=== PATIENT | female | born 1960 | race Caucasian/White ===

== ENCOUNTER 2020-06-11 14:45 | Outpatient (CLI) | payer OTHER, SELFPAY ==
--- NOTE | ~2020-06-11 | CT_ITS ---
EXAMINATION: CT abdomen pelvis w con DATE: 06/11/2020 15:34 INDICATION: Swelling. Abdominal mass. Frequent urination. TECHNIQUE: Computed tomography (CT) of the abdomen and pelvis was performed with 100 mL Omnipaque-350 intravenous contrast. Automated exposure control and iterative reconstruction technique were employe d. The dose-length product was 1503.23 mGy-cm. COMPARISON: None FINDINGS: Small calcified nodule in the right middle lobe consistent with old granulomatous disease. Heart size is normal. No pericardial or pleural effusion. Liver, spleen, pancreas, bilateral adrenal glands and left kidney are normal. Indeterminate 6 mm intermediate attenuation right renal lesion which is too small to definitively characterize. Gallbladder is nondistended but with mild edematous wall thickeni ng versus small amount of pericholecystic fluid. No intra or extra hepatic biliary ductal dilation. T here is moderate colonic diverticulosis with a sigmoid predominance. There is no adjacent inflammator y change to suggest diverticulitis. Small bowel and appendix are normal. The uterus is not identifie d and has likely been surgically resected. There is mild diffuse bladder wall thickening which could be due to partially decompressed state or cystitis either acute or chronic. Small amount of likely ph ysiologic free fluid in the pelvis. No pathologically enlarged abdominal or pelvic lymphadenopathy. N o discrete masses identified. Severe lumbar and moderate to severe lower thoracic spondylosis. IMPRESSION: 1. Mild edematous gallbladder wall thickening versus small amount of pericholecystic fluid. Different ial would include acute cholecystitis in the appropriate clinical setting although more typically the gallbladder would be dilated. Differential would also include change of chronic cholecystitis or marah ma related to liver disease, heart disease or other generalized edema forming states. Correlate for M urphy sign and with clinical history. Could also consider gallbladder ultrasound to assess for cholel ithiasis. 2. Indeterminate intermediate attenuation 6 mm right renal cyst which is too small to definitively ch aracterize, statistically most likely to represent a proteinaceous/hemorrhagic cyst although solid ne oplasm cannot be excluded. Consider 6 month follow-up pre and postcontrast MRI or CT. 3. Mild diffuse bladder wall thickening which could be due to incomplete distention although differen tial would include cystitis either acute or chronic. Correlate with urinalysis. 4. Moderate diverticulosis. Reviewed, dictated and finalized at location A. ASSEMBLER IMPRESSION: 1. Mild edematous gallbladder wall thickening versus small amount of pericholec ystic fluid. Differential would include acute cholecystitis in the appropriate clinical setting although more typically the gallbladder would be dilated. Diff erential would also include change of chronic cholecystitis or edema related to liver disease, heart disease or other generalized edema forming states. Correl ate for Dockery sign and with clinical history. Could also consider gallbladder ultrasound to assess for cholelithiasis. 2. Indeterminate intermediate attenuation 6 mm right renal cyst which is too sm all to definitively characterize, statistically most likely to represent a prot einaceous/hemorrhagic cyst although solid neoplasm cannot be excluded. Consider 6 month follow-up pre and postcontrast MRI or CT. 3. Mild diffuse bladder wall thickening which could be due to incomplete disten tion although differential would include cystitis either acute or chronic. Ginger elate with urinalysis. 4. Moderate diverticulosis.
[2020-06-11 15:26] LABS: Estimated Glomerular Filt Rate > 60
== END 2020-06-11 14:46 | disposition home or self-care (01) ==
PROVIDERS: PCP Internal Medicine Infectious Disease; Visit Provider Obstetrics & Gynecology
DX: R19.00 Intra-abdominal and pelvic swelling, mass and lump, unspecified site (principal); K57.30 Diverticulosis of large intestine without perforation or abscess without bleeding; R93.89 Abnormal findings on diagnostic imaging of other specified body structures
CPT/HCPCS: 74177; Q9967

== ENCOUNTER 2020-07-04 11:40 | Outpatient (CLI) | payer OTHER, SELFPAY ==
--- NOTE | ~2020-07-04 | US_ITS ---
EXAMINATION: US right upper quadrant DATE: 07/04/2020 12:10 INDICATION: Gallbladder wall thickening. TECHNIQUE: Multiple grayscale and Doppler ultrasound images of the abdomen were obtained. COMPARISON: CT abdomen and pelvis 06/11/2020 FINDINGS: The visualized portions of the head and body of the pancreas are normal. The liver is ruby l without focal lesion. There is normal flow in main portal vein. There are gallstones in the gallbla dder, which is normal in size. Gallbladder wall thickening is noted. There was no sonographic Dockery sign. The common duct is normal and measures 6 mm. IMPRESSION: 1. Cholelithiasis and persistent gallbladder wall thickening, likely chronic cholecystitis. Reviewed, dictated and finalized at location A. N RESOURCES RECORDS CLERK IMPRESSION: 1. Cholelithiasis and persistent gallbladder wall thickening, likely chronic ch olecystitis.
[2020-07-04 12:47] LABS: Hematocrit 40.5 % (37.0-47.0); Hemoglobin 12.5 g/dL (12.0-15.0); Mean Corpuscular HGB Conc 30.9 g/dl (32-36); Mean Corpuscular Hemoglobin 26.8 pg (26-34); Mean Corpuscular Volume 86.7 fl (80-100); Mean Platelet Volume 10.1 fl (7.4-10.4); Platelet Count Result 225 k/mm3 (150-375); Red Blood Count 4.67 M/mm3 (4.2-5.4); Red Cell Distribution Width 14.4 % (11.5-14.5)
[2020-07-04 13:03] LABS: Alanine Aminotransferase 22 U/L (4-35); Alkaline Phosphatase 74 U/L (38-126); Anion Gap 5 mmol/L (8-16); Aspartate Amino Transferase 25 U/L (14-36); Bilirubin,Total 0.3 mg/dL (0.2-1.3); Blood Urea Nitrogen 14 mg/dL (7-17); Calcium 9.1 mg/dL (8.4-10.2); Carbon Dioxide 32 mmol/L (22-30); Chloride 105 mmol/L (98-107); Estimated Glomerular Filt Rate > 60; Glucose 106 mg/dL (65-105); Potassium 4.2 mmol/L (3.4-5.0); Sodium 142 mmol/L (137-145)
== END 2020-07-04 11:41 | disposition home or self-care (01) ==
PROVIDERS: PCP Internal Medicine Infectious Disease; Visit Provider Nurse Practitioner
DX: R93.3 Abnormal findings on diagnostic imaging of other parts of digestive tract (principal); K80.20 Calculus of gallbladder without cholecystitis without obstruction
CPT/HCPCS: 36415; 76705; 80048; 80076; 85027

== ENCOUNTER 2020-09-22 09:07 | Outpatient (CLI) | payer OTHER, SELFPAY ==
--- NOTE | ~2020-09-22 | US_ITS ---
EXAMINATION: US pelvic complete w TV DATE: 09/22/2020 10:05 INDICATION: Palpable midline pelvic mass. Previous hysterectomy. Comparison:No prior studies for comparison. TECHNIQUE: Multiple transabdominal and endovaginal sonographic images of the pelvis performed. FINDINGS: Uterus is surgically absent. The right ovary measures 1.6 x 0.9 x 0.7 cm and the left ovary measures 2.6 x 1.7 x 1.6 cm. There ar e small follicles in each ovary. Normal doppler signal in both ovaries. There is free fluid in the pelvis. There are no abnormal masses seen on either side. IMPRESSION: 1. Unremarkable pelvic ultrasound post cholecystectomy. Reviewed, dictated and finalized at location B.
== END 2020-09-22 09:08 | disposition home or self-care (01) ==
PROVIDERS: PCP Internal Medicine Infectious Disease; Visit Provider Obstetrics & Gynecology Gynecology
DX: R93.5 Abnormal findings on diagnostic imaging of other abdominal regions, including retroperitoneum (principal)
CPT/HCPCS: 76830; 76856

== ENCOUNTER 2020-11-04 09:09 | Outpatient (CLI) | payer OTHER, SELFPAY ==
--- NOTE | 2020-11-04 11:00 | NEURO_ITS ---
Impression: # Complains of numbness in all extremities. Known to have pre- diabetes and Sjogren?s syndrome. # Normal motor and sensory nerve conduction study. # Normal needle/EMG exam. # Clinical correlation recommended. #Symptomatology could be related to small fiber neuropathy. Nerve Conduction Studies Anti Sensory Summary Table Stim Site NR Peak (ms) P-T Amp (?V) Site1 Site2 Delta-P (ms) Dist (cm) Marcellus (m/s) Left Median Anti Sensory (2-3nd Digit) Wrist 3.3 48.9 Wrist 2-3nd Digit 3.3 14.0 42 Wrist 3.6 39.2 Wrist 2-3nd Digit 3.3 14.0 42 Right Median Anti Sensory (2-3nd Digit) Wrist 3.2 38.4 Wrist 2-3nd Digit 3.2 14.0 44 Wrist 3.5 17.7 Wrist 2-3nd Digit 3.2 14.0 44 Left Radial Anti Sensory (Base 1st Digit) Wrist 2.5 13.1 Wrist Base 1st Digit 2.5 0.0 Right Radial Anti Sensory (Base 1st Digit) Wrist 2.8 8.8 Wrist Base 1st Digit 2.8 0.0 Left Sup Fibular Anti Sensory (Ant Lat Mall) 14 cm 3.8 15.2 14 cm Ant Lat Mall 3.8 16.0 42 Right Sup Fibular Anti Sensory (Ant Lat Mall) 14 cm 3.9 11.4 14 cm Ant Lat Mall 3.9 16.0 41 Left Sural Anti Sensory (Lat Mall) Calf 3.9 7.1 Calf Lat Mall 3.9 16.0 41 Right Sural Anti Sensory (Lat Mall) Calf 4.0 10.4 Calf Lat Mall 4.0 16.0 40 Left Ulnar Anti Sensory (5th Digit) Wrist 2.6 32.8 Wrist 5th Digit 2.6 14.0 54 Right Ulnar Anti Sensory (5th Digit) Wrist 2.4 47.1 Wrist 5th Digit 2.4 14.0 58 Motor Summary Table Stim Site NR Onset (ms) O-P Amp (mV) Site1 Site2 Delta-0 (ms) Dist (cm) Marcellus (m/s) Left Median Motor (Abd Poll Brev) Wrist 3.4 3.5 Elbow Wrist 5.4 29.0 54 Elbow 8.8 2.5 Right Median Motor (Abd Poll Brev) Wrist 3.3 3.6 Elbow Wrist 5.4 28.0 52 Elbow 8.7 1.6 Left Peroneal Motor (Vastus Med) Ankle 4.8 2.6 Popit Ankle 9.0 40.0 44 Popit 13.8 2.0 Right Peroneal Motor (Vastus Med) Ankle 4.6 2.0 Popit Ankle 8.1 37.0 46 Popit 12.7 1.9 Left Tibial Motor (Abd Fang Brev) Ankle 4.4 2.5 Knee Ankle 9.8 40.0 41 Knee 14.2 2.0 Right Tibial Motor (Abd Fang Brev) Ankle 4.1 2.1 Knee Ankle 9.8 40.0 41 Knee 13.9 1.7 Left Ulnar Motor (Abd Dig Minimi) Wrist 2.9 5.7 A Elbow Wrist 5.1 28.0 55 A Elbow 8.0 4.0 Right Ulnar Motor (Abd Dig Minimi) Wrist 3.0 5.2 A Elbow Wrist 5.1 28.0 55 A Elbow 8.1 3.8 F Wave Studies NR F-Lat (ms) L-R F-Lat (ms) Left Median (Mrkrs) (Abd Poll Brev) 29.10 0.51 Right Median (Mrkrs) (Abd Poll Brev) 28.59 0.51 Left Peroneal (Mrkrs) (EDB) 53.48 0.78 Right Peroneal (Mrkrs) (EDB) 52.70 0.78 Left Tibial (Mrkrs) (Abd Hallucis) 53.79 0.82 Right Tibial (Mrkrs) (Abd Hallucis) 52.97 0.82 Left Ulnar (Mrkrs) (Abd Dig Min) 29.14 0.88 Right Ulnar (Mrkrs) (Abd Dig Min) 28.26 0.88 EMG Side Muscle Nerve Root Ins Act Fibs Amp Dur Recrt Comment Right 1stDorInt Ulnar C8-T1 Nml Nml Nml Nml Nml Right Ext Indicis Radial (Post Int) C7-8 Nml Nml Nml Nml Nml Right Ext Digitorum Radial (Post Int) C7-8 Nml Nml Nml Nml Nml Right BrachioRad Radial C5-6 Nml Nml Nml Nml Nml Right PronatorTeres Median C6-7 Nml Nml Nml Nml Nml Right Abd Poll Brev Median C8-T1 Nml Nml Nml Nml Nml Right Ant
== END 2020-11-04 09:10 | disposition home or self-care (01) ==
PROVIDERS: PCP Internal Medicine Infectious Disease; Visit Provider Internal Medicine Infectious Disease
DX: G62.9 Polyneuropathy, unspecified (principal)
CPT/HCPCS: 95886; 95913

== ENCOUNTER 2021-05-03 13:34 | Outpatient (CLI) | payer OTHER, SELFPAY ==
--- NOTE | ~2021-05-03 | CT_ITS ---
EXAMINATION: CT abdomen pelvis wo/w con EXAM DATE: 05/03/2021 15:04 INDICATION: Gross hematuria. Right renal lesion on prior CT reported as indeterminate and measuring 6 mm. TECHNIQUE: Spiral CT of the abdomen and pelvis was performed without contrast. The patient was then injected with small bolus intravenous Omnipaque 350, followed by delay of approximately 10 minutes to allow collecting system to opacify. A post contrast scan abdomen and pelvis was performed during inj ection of remaining contrast. A total of 130 cc intravenous contrast was administered. The dose-maxime th product (DLP) for this examination was 3155.49 mGy-cm. The exposure was tailored according to pat ient size (auto mA exposure control), and iterative reconstruction (ASIR) was used as additional dose reduction technique. Comparison is made to prior examination from 06/11/2020. FINDINGS: No nephrolithiasis on the precontrast study. 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 Can't identify previously described 6 mm right renal hypodensity, could be that this was a small cyst that has resolved. The kidneys enhance symme trically. There are no suspicious renal lesions. The calyces and opacified portions of ureters are unremarkable, without filling defects or focal suspicious strictures. The bladder is unremarkable. The uterus is not identified and has likely been surgically resected. The liver, spleen, adrenal glands and pancreas are unremarkable. Gallbladder is unremarkable. No bi liary obstruction. There is no retroperitoneal or pelvic lymphadenopathy. There is mild scattered arteriosclerotic disease. Small region of chronic fat necrosis in the omentum or mesentery. There is mild to moderate scattered colonic diverticulosis. There is no adjacent inflammatory change to suggest diverticulitis. Normal appendix. There is small sliding gastroesophageal hiatal hernia. There is expected amount of colonic stool. No free intraperitoneal gas. The heart is normal in si ze. There are no pericardial or pleural effusions. Several right basilar calcified granulomas. IMPRESSION: 1. Partially duplicated right renal collecting system. 2. Mild to moderate colonic diverticulosis. Reviewed, dictated and finalized at location A. S FARM LABORER
[2021-05-03 14:13] LABS: Estimated Glomerular Filt Rate > 60
== END 2021-05-03 13:35 | disposition home or self-care (01) ==
LOC: ANHIMG 13:40
PROVIDERS: PCP Internal Medicine Infectious Disease; Visit Provider Nurse Practitioner
DX: R31.0 Gross hematuria (principal); N28.1 Cyst of kidney, acquired; K57.30 Diverticulosis of large intestine without perforation or abscess without bleeding
CPT/HCPCS: 74178; Q9967